=== PATIENT | female | born 1990 | race Caucasian/White ===

== ENCOUNTER 2017-04-08 06:21 | Day surgery (SDC) | payer OTHER ==
[~2017-04-08] VITALS: Ht 157.5 cm; Wt 90.9 kg
[2017-04-08] VITALS (7 sets, daily range): BP systolic 117–138; BP diastolic 64–79; PULSE 71–93; RESP 14–17; O2SAT 94–99
[~2017-04-08 06:21] MED LIST: ALBU2.5V4 INHALATION; ALBU8.5H2 INHALATION; BENEDRYL PO; ETON68IM3 SQ; HYDR-4003 PO; IBUP200C PO; KETO10TA PO; SENN1TAB90 PO; SERT20OR6 PO; TAMS0.4C98 PO; ZOF8 PO; levoFLOXacin Inj 500 MG in IV Premix 1 EACH IV ONE
[2017-04-08] MEDS ORDERED: MetoCLOpramide 5 mg/mL 2 mL Inj ONE (06:22)
[2017-04-08] MEDS ORDERED: Dexamethasone 4 mg/mL Inj ONE (06:22)
[2017-04-08] MEDS ORDERED: Propofol 10,000 mCg/mL 20 mL Inj ONE (06:22)
[2017-04-08] MEDS: Lactated Ringer's 1,000 ML IV SCH ×2 (06:46→08:30)
[2017-04-08] MEDS ORDERED: DIPH25CA6 PO (06:50)
[2017-04-08] MEDS ORDERED: Lactated Ringer's 1,000 ML IV SCH (08:52)
[2017-04-08] MEDS ORDERED: Lactated Ringer's 500 ML IV PRN (08:52)
[2017-04-08] MEDS ORDERED: Ondansetron 2 mg/mL 2 mL Inj IVPUSH PRN (08:55)
[2017-04-08] MEDS ORDERED: Atropine 0.4 mg/mL Inj IVPUSH PRN (08:55)
[2017-04-08] MEDS ORDERED: Labetalol 5 mg/mL 4 mL Inj IV PRN (08:55)
[2017-04-08] MEDS ORDERED: MetoCLOpramide 5 mg/mL 2 mL Inj IVPUSH PRN (08:55)
[2017-04-08] MEDS ORDERED: EPHEDrine Sulfate 50 mg/mL Inj IVPUSH PRN (08:55)
[2017-04-08] MEDS ORDERED: fentaNYL-PF 50 mCg/mL 2 mL Inj IVPUSH PRN (08:55)
[2017-04-08] MEDS ORDERED: Phenylephrine 10,000 mCg/mL Inj IVPUSH PRN (08:55)
[2017-04-08] MEDS ORDERED: HYDROcodone-APAP 5-325 mg Tablet PO PRN (09:30)
--- NOTE | 2017-04-08 09:36 | DRSVH ---
PROCEDURE: X-RAY RETROGRADE UROGRAPHY INDICATIONS: RIGHT STENT PLACEMENT TECHNIQUE: 3 intra-operative images acquired by the Urology service. COMPARISON: [facility], CR, KUB XRAY (1 VIEW ABDOMEN), 03/25/2017, 9:15. [facility], CT, A BDOMEN/PELVIS WITH CONTRAST, 03/07/2017, 21:05. FINDINGS: Exam limited to the 3 submitted images. Within these limits the right renal collecting sy stem appears normal no intraluminal filling defects are seen. Only a small portion of the mid ureter is visualized which appears grossly normal. No extravasation of contrast media. Ureteral stent kong ed. IMPRESSION: 1. Limited exam demonstrating grossly normal appearance the right renal collecting system and visuali zed portions of the midureter. 2. Ureteral stent placed. Dictated by: Saravanan [place] Interpreted: Farshad Falcon MD on 04/08/2017 at 9:33 Transcribed by: NANCY on 04/08/2017 at 9:35 Approved by: Farshad Falcon M.D. on 04/08/2017 at 11:13
--- NOTE | 2017-04-08 11:52 | OP ---
[address] [address] OPERATIVE REPORT PATIENT: DEONNA SONG : 1990 MR#: [id number] ADMIT: 04/08/2017 JOB ID: [id number] DATE OF SURGERY: 04/08/2017 PREOPERATIVE DIAGNOSIS(ES): Right ureteral stone. POSTOPERATIVE DIAGNOSIS(ES): Right ureteral stone. PROCEDURE PERFORMED: 1. Cystoscopy with right retrograde pyelogram. 2. Right ureteroscopy. 3. Right ureteral stent placement. SURGEON: Nelia Fried MD. NAILHEAD SETTER: None. FINDINGS: 1. Narrow distal ureter. 2. Normal retrograde pyelogram. ANESTHESIA: General. ESTIMATED BLOOD LOSS: 2 mL. DRAINS: A 6 x 24 right double-J ureteral stent. SPECIMENS: None. COMPLICATIONS: None. CONDITION: Stable. INDICATIONS FOR PROCEDURE: The patient is a 26-year-old woman with a right proximal ureteral stone. She now presents for right ureteroscopy. DESCRIPTION OF THE PROCEDURE: After informed consent was obtained, the patient was taken to the operating room. A time-out was performed identifying correct patient, surgical site, procedure. General anesthesia was smoothly induced. She was placed in the lithotomy position and all pressure points were identified and appropriately padded. Her genitals were then prepped and draped in the usual sterile fashion. A 22-Kazakh rigid cystoscope was applied to the patient's urethra and advanced to the patient's bladder. The bladder was drained. The bladder was systematically inspected. There were no unusual findings. The right ureteral orifice was cannulated with a 5-Kazakh open-ended Pollack catheter. Retrograde pyelogram was performed, and there were no anomalies there. Two Sensor tip wires were advanced into the renal pelvis in succession. Semi-rigid ureteroscopy then commenced. The ureteroscope was navigated beyond the ureteral orifice to the intravesical portion of the ureteral lumen. It could not be advanced any further than this aspect of the distal ureter. The ureteroscope was then removed from the ureter and the patient's bladder. A 12/14 access sheath 28 cm long was loaded over one of the wires. It was attempted to be advanced, though with gentle manipulation it could not be advanced much more beyond the pelvic brim. It was decided to remove the access sheath. The remaining wire was then backloaded in the cystoscope and a 6 x 24 double-J ureteral stent was loaded over it and advanced to the renal pelvis as seen under fluoroscopy. The wire was then removed leaving a nice coil in the patient's bladder as seen under direct vision. The patient's bladder was then drained. She was reversed from general anesthesia and taken to PACU in good and stable condition. SABRINA
--- NOTE | 2017-04-08 13:53 | PCM.HPANE ---
Patient Data Surgeon Admitting Provider: Attending Provider:Nelia Fried MD Primary Care Physician:Staci Otoole MD Other Provider:Clau Mejía Anesthesia Reason for Visit Right Ureteral Stone Ht/WT & BMI Height (Feet): 5 Height (Inches): 2 Weight (Kilograms): 92.08 Body Mass Index 37.00 Allergies Coded Allergies: latex (Verified Allergy, Severe, ITCHING, 04/06/17) lactose (Unverified Allergy, Unknown, 04/08/17) Past Anesthesia History Anesthesia History: Denies:: Abnormal Airway, Anesthesia Reactions, Difficult Intubation, Fam Anesthesia Reaction, Fam Malignant Hypertherm, Malignant Hyperthermia Diabetes History Hx Diabetes?: No MRSA MRSA: No Medications Home Meds Incl Beta Sergei: No Reported Medications diphenhydrAMINE HCl (Benadryl)25 Mg Ebhcevd09-25 Mg PO Q4 PRN For Itching Ref 0 04/08/17 Albuterol HFA (Proair HFA)8.5 Gm Hfa.aer.ad2 Puffs INHALATION Q4H PRN PRN #1 INHALER 04/06/17 Etonogestrel (Nexplanon)68 Mg Mvgxkdl43 Mg SQ DIRECTED PRN CONTROL 04/06/17 Sertraline HCl (Sertraline)20 Mg/1 Ml Oral.conc50 Mg PO DAILY #1 BOTTLE Ref 0 04/06/17 Ondansetron (Zofran)8 Mg Tablet8 Mg PO BID PRN For Nausea 04/06/17 Tamsulosin (Flomax)0.4 Mg Capsule0.4 Mg PO DAILY Ref 0 04/06/17 Sennosides/Docusate Sodium (Senna-Docusate Sodium Tablet)1 Each Tablet2 Each PO DAILY 04/06/17 Ketorolac Tromethamine 10 Mg Xiqnqs02 Mg PO TID PRN PRN 30 Days 04/06/17 Ibuprofen 200 Mg Ialbbel305 Mg PO QID PRN For Pain Ref 0 04/06/17 Hydrocodone-Acetaminophen 5-325 mg 1 Each Tablet1-2 Tablet PO Q4H PRN For Pain Ref 0 04/06/17 Discontinued Reported Medications [Benedryl] No Conflict Bmluf73-20 Mg PO Q4-6H PRN PRN 04/06/17 Albuterol Neb Soln 2.5 Mg/3 Ml Vial.neb2.5 Mg INHALATION Q4H PRN For Shortness of Breath Ref 0 04/06/17 History History of ENT Problems?: No HEENT History: Denies:: Abnormal Airway Cataracts Difficult Intubation Dysphagia Glaucoma Hearing Problem Sinus Problem TMJ Denture Type: None Teeth Condition: Within Normal Limits Hx of Heart Problems?: Yes Cardiovascular History: Positive for:: Chest Pain (ASSOCIATED W/ NIGHTTIME BREATHLESSNESS R/T ANXIETY) Denies:: AICD Abdominal Aortic Aneurism Atrial Fibrillation Cardiac Surgery Congestive Heart Failure Coronary Artery Disease Edema Heart Murmur Hypertension Irregular Heartbeat Pacemaker Peripheral Vascular Rheumatic Fever Thrombophlebitis Valvular Heart Disease Hx of Respiratory Problem?: Yes Respiratory History: Positive for:: Dyspnea (C/OF NOCTURNAL DYSPNEA/WHEEZING R /T ANXIETY) Denies:: Asthma COPD Chest Surgery Cough Emphysema Hemoptysis Oxygen Administration Pneumonia Pulmonary Embolism Tuberculosis Use of C-PAP Machine (SNORES) Use of Inhalers / NEBS Hx Neurologic Problems?: Yes Neurological History: Denies:: Alzheimer's Disease CVA Dementia Dizziness Headaches Multiple Sclerosis Parkinson's Disease Peripheral Neuropathy Seizures TIA Other Neurological Pertinent: HX HSV Hx of GI Problems?: Yes Gastrointestinal History: Denies:: Cirrhosis Diverticulitis Gall Bladder Disease Gastroesphageal Reflux Gastrointestinal Bleeding Heartburn Hepatitis Hiatal Hernia Liver Disease Rectal Bleeding Other GI Pertinent History: C/OF NAUSEA, CONSTIPATION & DIARRHEA R/T KIDNEY STONE Hx of Problems?: Yes Genitourinary History: Positive for:: Kidney Stones (HX PRIOR STONES RT URETERAL STONE=CURRENT PROBLEM) Denies:: HX of Hemodialysis Urinary Tract Infection HX of Peritoneal Dialysis: No Other Pertinent History: C/OF NOCTURIA,INCONTINENCE,INCOMPLETE EMPTYING Female Hx: Denies:: Currently (C/OF PELVIC PAIN) Endometriosis Pelvic Inflammatory Problems with Breasts? Skin History: Denies:: History Skin Disorders? Pressure Ulcers Hx Musculoskeletal Problems?: Yes Musculoskeletal History: Denies:: Back Injury (C/OF BACK PAIN) Degenerative Joint Fibromyalgia Joint Replacement Musculoskeletal Trauma Myasthenia Gravis Osteoarthritis Rheumatoid Arthritis Systemic Lupus Hx of Psycho/Social Problems?: Yes Psycho Social History: Positive for:: Anxiety (HX OF PANIC DISORDER) Denies:: Bipolar Disorder Hx Depression Suicide Attempt Hx Surgeries?: No Hx Any Other Health Problems?: No Other History: Denies:: Cancer Endocrine Disease Hospitalization Thyroid Disease History Blood Transfusions: Denies:: Accept Blood Products? Blood Transfuse Reaction Blood Transfusions Hx Diabetes: No Have You Smoked inLast 12 mo: NoApprox How Many Cigarettes/day: 4YR HX Stop/Bang S-Snoring: Do You Snore Loudly: Yes T-Tired: feel tired, fatigued: Yes O-Obsered: Observed not breath: Yes P-Blood Pressure: treated: No B- Body Mass Index > 35 kg/m2: Yes A- Age over 50: No N- Neck Large Circumference: No G- Gender Male: No BRDOIE Total Score: 4 Risk Assessment Category Category 1A: Patient has history of documented sleep apnea, and HAS NOT received any narcotic, sedative or anesthesia administration during this stay. Category 1B: Patient has history of documented sleep apnea, and HAS received any narcotic , sedative or anesthesia administration during this stay Category 2: Patient has SUSPECTED Obstructive Sleep Apnea, and HAS received any narcotic , sedative or anesthesia administration during this stay. Category 3: Patient has SUSPECTED Obstructive Sleep Apnea and HAS NOT received narcotic, sedative or anesthesia administration during this stay. Category 4: Outpatient in Procedural Areas with known sleep apnea or who screen positive for High Risk via the STOP/BANG questionnaire. Exam Exam Vital Signs Vital Signs Date Time Temp Pulse Resp B/P Pulse Ox O2 Delivery O2 Flow Rate FiO2 04/08/17 07:16 36.1 71 17 126/70 95 Room Air General Appearance: Alert, Oriented X3, Cooperative, No Acute Distress HEENT/AIRWAY: MP 2, Neck Movement (FROM, large neck circumference) Lungs: Clear to Auscultation, Normal Air Movement Heart: Exam Unremarkable, Regular Rate/Rhythm, No Murmurs/Rubs/Gallops Meds/Labs/Diagnostics Admission Meds Current Medications Lactated Ringer's (Lr) 1,000 ml @ 120 mls/hr Q8H20M IV Last administered on t 06:46; Start 04/08/17 at 05:00; Stop 04/08/17 at 13:19 Plan Impression Patient chart reviewed, patient interviewed and anesthestic plan with risks, benefits, and alternatives discussed, and informed consent obtained. NPO per Anesth. Guidelines: Yes ASA Physical Status: ASA3 Severe Disease (large BMI) Anesthetic Plan: GA Bene/Risks/Altern/Consents: Yes HP Complete Prior to Induction: Yes Aldo Clifton MD April 08, 2017 07:29
--- NOTE | 2017-04-08 13:54 | PCM.ANEP1 ---
Post Anesthesia PACU Phase 1 Assessment Vital Signs Vital Signs Date Time Temp Pulse Resp B/P Pulse Ox O2 Delivery O2 Flow Rate FiO2 04/08/17 09:47 71 16 131/79 97 Room Air 04/08/17 09:35 36.2 77 16 117/68 98 Room Air 04/08/17 09:25 79 14 122/70 98 Room Air 04/08/17 09:20 77 14 122/72 97 Room Air 04/08/17 09:15 93 15 118/64 94 Room Air 04/08/17 09:11 36.2 89 17 138/68 99 Simple Mask 6 04/08/17 07:16 36.1 71 17 126/70 95 Room Air Anesthetic Administered: GA Level of Alertness: Awake, talking JARRETT's with Equal Strength: Yes Pain: No Nausea or Vomiting: No CV Function & Hydration Stable: No Airway Device: Oxygen Delivery: Room Air Lungs: Clear to Auscultation, Normal Air Movement Dermatome Level: Full Sensation PACU Phase 2 Assessment Complications: No Follow up Care: N/A Patient Instructions Provided: N/A Aldo Clifton MD April 08, 2017 13:54
== END 2017-04-08 23:59 | disposition home or self-care (01) ==
LOC: SAS 06:21
PROVIDERS: ATTEND Urology
PROC: 0T768DZ Dilation of Right Ureter with Intraluminal Device, Via Natural or Artificial Opening Endoscopic (ICD-10-PCS; principal; 2017-04-08 08:30)
DX: N20.1 Calculus of ureter (principal); Z87.442 Personal history of urinary calculi; Z87.891 Personal history of nicotine dependence; E66.9 Obesity, unspecified; Z68.30 Body mass index [BMI] 30.0-30.9, adult
CPT/HCPCS: 52332; 52351; 74420; C2617; J1100; J1885; J2765; J7120; Q9967

== ENCOUNTER 2017-04-13 05:36 | Day surgery (SDC) | payer OTHER ==
--- NOTE | 2017-04-12 16:36 | PCM.HPANE ---
Patient Data Surgeon Admitting Provider: Attending Provider:Nelia Fried MD Primary Care Physician:Staci Otoole MD Other Provider:Clau Mejía Anesthesia Reason for Visit Right Ureteral Stone Ht/WT & BMI Body Mass Index Allergies Coded Allergies: latex (Verified Allergy, Severe, ITCHING, 04/06/17) lactose (Unverified Allergy, Unknown, 04/08/17) Past Anesthesia History Anesthesia History: Denies:: Abnormal Airway, Anesthesia Reactions, Difficult Intubation, Fam Anesthesia Reaction, Fam Malignant Hypertherm, Malignant Hyperthermia Diabetes History Hx Diabetes?: No MRSA MRSA: No Medications Reported Medications diphenhydrAMINE HCl (Benadryl)25 Mg Iqdtkep61-80 Mg PO Q4 PRN For Itching Ref 0 04/08/17 Albuterol HFA (Proair HFA)8.5 Gm Hfa.aer.ad2 Puffs INHALATION Q4H PRN PRN #1 INHALER 04/06/17 Etonogestrel (Nexplanon)68 Mg Zwyqfnc02 Mg SQ DIRECTED PRN CONTROL 04/06/17 Sertraline HCl (Sertraline)20 Mg/1 Ml Oral.conc50 Mg PO DAILY #1 BOTTLE Ref 0 04/06/17 Ondansetron (Zofran)8 Mg Tablet8 Mg PO BID PRN For Nausea 04/06/17 Tamsulosin (Flomax)0.4 Mg Capsule0.4 Mg PO DAILY Ref 0 04/06/17 Sennosides/Docusate Sodium (Senna-Docusate Sodium Tablet)1 Each Tablet2 Each PO DAILY 04/06/17 Ketorolac Tromethamine 10 Mg Sympcy56 Mg PO TID PRN PRN 30 Days 04/06/17 Ibuprofen 200 Mg Vpdcoop784 Mg PO QID PRN For Pain Ref 0 04/06/17 Hydrocodone-Acetaminophen 5-325 mg 1 Each Tablet1-2 Tablet PO Q4H PRN For Pain Ref 0 04/06/17 Discontinued Reported Medications [Benedryl] No Conflict Tyrjj66-24 Mg PO Q4-6H PRN PRN 04/06/17 Albuterol Neb Soln 2.5 Mg/3 Ml Vial.neb2.5 Mg INHALATION Q4H PRN For Shortness of Breath Ref 0 04/06/17 History History of ENT Problems?: No HEENT History: Denies:: Abnormal Airway Cataracts Difficult Intubation Dysphagia Hearing Problem Sinus Problem TMJ Denture Type: None Teeth Condition: Within Normal Limits Hx of Heart Problems?: Yes Cardiovascular History: Positive for:: Chest Pain (ASSOCIATED W/ NIGHTTIME BREATHLESSNESS R/T ANXIETY) Denies:: AICD Abdominal Aortic Aneurism Atrial Fibrillation Cardiac Surgery Congestive Heart Failure Edema Heart Murmur Hypertension Irregular Heartbeat Pacemaker Rheumatic Fever Thrombophlebitis Valvular Heart Disease Hx of Respiratory Problem?: Yes Respiratory History: Positive for:: Dyspnea (C/OF NOCTURNAL DYSPNEA/WHEEZING R /T ANXIETY) Denies:: Asthma COPD Chest Surgery Cough Emphysema Hemoptysis Oxygen Administration Pneumonia Pulmonary Embolism Tuberculosis Use of C-PAP Machine (SNORES) Hx Neurologic Problems?: Yes Neurological History: Denies:: Alzheimer's Disease CVA Dementia Dizziness Headaches Multiple Sclerosis Parkinson's Disease Seizures Hx of GI Problems?: Yes Hx of Problems?: Yes Genitourinary History: Positive for:: Kidney Stones (HX PRIOR STONES RT URETERAL STONE=CURRENT PROBLEM) Denies:: HX of Hemodialysis Urinary Tract Infection HX of Peritoneal Dialysis: No Female Hx: Denies:: Currently (C/OF PELVIC PAIN) Endometriosis Pelvic Inflammatory Problems with Breasts? Skin History: Denies:: History Skin Disorders? Pressure Ulcers Hx Musculoskeletal Problems?: Yes Musculoskeletal History: Denies:: Back Injury (C/OF BACK PAIN) Degenerative Joint Joint Replacement Musculoskeletal Trauma Systemic Lupus Hx of Psycho/Social Problems?: Yes Psycho Social History: Positive for:: Anxiety (HX OF PANIC DISORDER) Denies:: Bipolar Disorder Hx Depression Suicide Attempt Hx Surgeries?: No Hx Any Other Health Problems?: No Other History: Denies:: Cancer Endocrine Disease Hospitalization Thyroid Disease History Blood Transfusions: Denies:: Blood Transfuse Reaction Blood Transfusions Hx Diabetes: No Smoking Status: Former Smoker Have You Smoked inLast 12 mo: No Stop/Bang P-Blood Pressure: treated: No A- Age over 50: No G- Gender Male: No Risk Assessment Category Category 1A: Patient has history of documented sleep apnea, and HAS NOT received any narcotic, sedative or anesthesia administration during this stay. Category 1B: Patient has history of documented sleep apnea, and HAS received any narcotic , sedative or anesthesia administration during this stay Category 2: Patient has SUSPECTED Obstructive Sleep Apnea, and HAS received any narcotic , sedative or anesthesia administration during this stay. Category 3: Patient has SUSPECTED Obstructive Sleep Apnea and HAS NOT received narcotic, sedative or anesthesia administration during this stay. Category 4: Outpatient in Procedural Areas with known sleep apnea or who screen positive for High Risk via the STOP/BANG questionnaire. Exam Exam General Appearance: Alert, Oriented X3, Cooperative HEENT/AIRWAY: MP 2, Neck Movement (FROM), Mouth Opening (WNL) Lungs: Clear to Auscultation Heart: Exam Unremarkable Plan Impression Patient chart reviewed, patient interviewed and anesthestic plan with risks, benefits, and alternatives discussed, and informed consent obtained. NPO per Anesth. Guidelines: Yes ASA Physical Status: ASA2 Mod Systemic Disease Anesthetic Plan: GA Bene/Risks/Altern/Consents: Yes HP Complete Prior to Induction: Yes Chris Soliz MD April 12, 2017 16:36
[2017-04-13] VITALS (10 sets, daily range): BP systolic 125–143; BP diastolic 67–89; PULSE 63–85; RESP 10–17; O2SAT 96–100
[~2017-04-13] VITALS: Ht 157.5 cm; Wt 91.4 kg
[~2017-04-13 05:36] MED LIST changes: -ALBU2.5V4 INHALATION; -BENEDRYL PO; +DIPH25CA6 PO; +LORazepam 1 mg Tablet PO PRN; +Lactated Ringer's 1,000 ML IV SCH; -levoFLOXacin Inj 500 MG in IV Premix 1 EACH IV ONE
[2017-04-13] MEDS ORDERED: Propofol 10,000 mCg/mL 20 mL Inj ONE (05:37)
[2017-04-13] MEDS ORDERED: Dexamethasone 4 mg/mL Inj ONE (05:37)
[2017-04-13] MEDS ORDERED: Remifentanil 1 mg/3 mL Inj ONE (05:37)
[2017-04-13] MEDS ORDERED: fentaNYL-PF 50 mCg/mL 2 mL Inj ONE (05:37)
[2017-04-13] MEDS: Lactated Ringer's 1,000 ML IV SCH ×2 (05:37→07:36)
[2017-04-13] MEDS ORDERED: Ondansetron 2 mg/mL 2 mL Inj ONE (05:37)
[2017-04-13] MEDS ORDERED: Acetaminophen IV 1,000 MG in IV Premix 1 EACH IV ONE (06:45)
[2017-04-13] MEDS ORDERED: fentaNYL-PF 50 mCg/mL 2 mL Inj IVPUSH PRN ×2 (06:45→08:30)
[2017-04-13] MEDS ORDERED: Lactated Ringer's 1,000 ML IV SCH (08:27)
[2017-04-13] MEDS ORDERED: Lactated Ringer's 500 ML IV PRN (08:27)
[2017-04-13] MEDS ORDERED: hydrALAZINE 20 mg/mL Inj IVPUSH PRN (08:30)
[2017-04-13] MEDS ORDERED: Dexamethasone 4 mg/mL Inj IVPUSH PRN (08:30)
[2017-04-13] MEDS ORDERED: Atropine 0.4 mg/mL Inj IVPUSH PRN (08:30)
[2017-04-13] MEDS ORDERED: Labetalol 5 mg/mL 4 mL Inj IV PRN (08:30)
[2017-04-13] MEDS ORDERED: EPHEDrine Sulfate 50 mg/mL Inj IVPUSH PRN (08:30)
[2017-04-13] MEDS ORDERED: Phenylephrine 10,000 mCg/mL Inj IVPUSH PRN (08:30)
[2017-04-13] MEDS ORDERED: Ondansetron 2 mg/mL 2 mL Inj IVPUSH PRN (08:30)
[2017-04-13] MEDS: fentaNYL-PF 50 mCg/mL 2 mL Inj ONE ×2 (08:32→08:45)
--- NOTE | 2017-04-13 08:34 | PCM.ANEP1 ---
Post Anesthesia PACU Phase 1 Assessment Vital Signs Vital Signs Date Time Temp Pulse Resp B/P Pulse Ox O2 Delivery O2 Flow Rate FiO2 04/13/17 08:20 36.7 79 11 143/76 100 Room Air 04/13/17 06:01 36.5 85 16 126/74 98 Room Air Anesthetic Administered: GA Level of Alertness: Awake, talking JARRETT's with Equal Strength: Yes Pain: Yes Pain Scale Score: 6 Nausea or Vomiting: No CV Function & Hydration Stable: No Airway Device: Oxygen Delivery: Room Air Lungs: Normal Air Movement PACU Phase 2 Assessment Complications: No Follow up Care: No Patient Instructions Provided: N/A Chris Soliz MD April 13, 2017 08:34
[2017-04-13] MEDS ORDERED: oxyCODONE-Acetamin 5-325 mg Tablet PO PRN (08:40)
[2017-04-13] MEDS: HYDROmorphone 1 mg/mL Inj IVPUSH PRN ×2 (09:13→09:20)
--- NOTE | 2017-04-13 09:15 | OP ---
[address] [address] OPERATIVE REPORT PATIENT: DEONNA SONG : 1990 MR#: [id number] ADMIT: 04/13/2017 JOB ID: [id number] DATE OF SURGERY: 04/13/2017 PREOPERATIVE DIAGNOSIS(ES): Right ureteral stone. POSTOPERATIVE DIAGNOSIS(ES): Right kidney stone. PROCEDURE PERFORMED: 1. Cystoscopy and right ureteral stent removal. 2. Right retrograde pyelogram. 3. Right ureteroscopy, laser lithotripsy, and stone basketing. 4. Right ureteral stent placement. SURGEON: Nelia Fried MD MANUFACTURING SALES REPRESENTATIVE: None. FINDINGS: Right ureteral stone that had migrated to the right lower pole of the kidney. ANESTHESIA: General. ESTIMATED BLOOD LOSS: Less than 5 mL. DRAINS: 6 x 24 right double-J ureteral stent. SPECIMEN: Right kidney stone for stone analysis. COMPLICATIONS: None. CONDITION: Stable. INDICATIONS: The patient is a 26-year-old woman who last week underwent right ureteral stent placement after right ureteroscopy. The ureter was narrow beyond the pelvic brim and ureteroscopy could not commence any more proximally. She now presents for definitive management of her stone. DESCRIPTION OF PROCEDURE: After informed consent was obtained, the patient was taken to the operating room. A time-out was performed identifying correct patient, surgical site, and procedure. General anesthesia was smoothly induced. She was placed in the lithotomy position and all pressure points were identified and appropriately padded. Her genitals were then prepped and draped in usual sterile fashion. A 22-Hungarian rigid scope was applied to the patient's urethra and advanced into the bladder. The bladder was drained. A stent grasper was used to grasp the distal coil. It was manipulated to the urethral meatus. It was loaded with a Sensor tip wire. The wire was then advanced to the renal pelvis as seen under fluoroscopy. The stent was then backloaded off of the wire. A stent was examined and ensured as removed in its entirety. A 2nd sensor tip wire was then navigated to the renal pelvis as seen under fluoroscopy. Semi-rigid ureteroscopy then commenced. The ureteroscope was brought to the level of L5. There was no stone seen there. The ureteroscope was then removed from the patient's body under direct vision. One of the Sensor tip wires was then backloaded into a 12/14 access sheath, 28 cm long. The access sheath was then navigated to the proximal ureter as seen under fluoroscopy. Flexible ureteroscopy then commenced. Retrograde pyelogram was performed. It appeared normal. Every calyx was inspected. There was a stone seen in the right lower pole calyx. This was consistent with a stone seen on CT scan. A 273 micron laser fiber wire was used to break the stone into small pieces. The zero tip nitinol basket was used to basket any stone fragments and passed off to pathology for stone analysis. The ureteroscope was then brought down to the level of the access sheath and both were brought down in tandem. The remaining ureter appeared normal. The remaining Sensor tip wire was then backloaded in the cystoscope, and a 6 x 24 double-J ureteral stent was loaded over the wire and navigated to the renal pelvis as seen under fluoroscopy. The wire was then removed leaving a nice coil in the patient's bladder as seen under direct vision. The bladder was then drained. The patient was then reversed from general anesthesia and taken to PACU in good stable condition. SABRINA
[2017-04-13] MEDS ORDERED: MetoCLOpramide 5 mg/mL 2 mL Inj ONE (09:39)
[2017-04-21 14:11] LABS: Stone Color Brown (.)
== END 2017-04-13 23:59 | disposition home or self-care (01) ==
LOC: SAS 05:36
PROVIDERS: ATTEND Urology
DX: N20.1 Calculus of ureter (principal); F41.0 Panic disorder [episodic paroxysmal anxiety]; Z87.891 Personal history of nicotine dependence; Z79.51 Long term (current) use of inhaled steroids
CPT/HCPCS: 52356; 74420; 82360; C2617; J0131; J0690; J1100; J1170; J2250; J2405; J2765; J3010; J7120; Q9967